=== PATIENT | female | born 1970 ===

== ENCOUNTER → 2020-02-24 | Outpatient (CLI) | payer MEDICAID ==
--- NOTE | 2020-02-24 12:57 | US ---
EXAMINATION TYPE: US kidneys/renal and bladder DATE OF EXAM: 02/24/2020 COMPARISON: NONE CLINICAL HISTORY: Q61.2 Polycystic kidney disease (family history of). EXAM MEASUREMENTS: Right Kidney: 12.0 x 3.6 x 4.7cm Left Kidney: 11.4 x 4.7 x 4.3cm Right Kidney: no hydronephrosis or masses seen Left Kidney: no hydronephrosis or masses seen Bladder: wnl There is no evidence for hydronephrosis at this point in time. No nephrolithiasis is seen. No shimon s are identified. The urinary bladder is anechoic. Bilateral ureteral jets are seen. IMPRESSION:
== END | disposition home or self-care (01) ==
LOC: RADUSWWP 12:05
PROVIDERS: ATTEND Internal Medicine Critical Care Medicine
DX: Q61.2 Polycystic kidney, adult type (principal)
CPT/HCPCS: 76770

== ENCOUNTER → 2020-04-23 | Outpatient (CLI) | payer MEDICAID ==
--- NOTE | 2020-04-23 17:31 | BD ---
EXAMINATION TYPE: Axial Bone Density DATE OF EXAM: 04/23/2020 COMPARISON: NONE CLINICAL HISTORY: Postmenopausal screening Height: 66.2 IN Weight: 119 LBS FRAX RISK QUESTIONS: Secondary Osteoporosis: 3. Menopause before 45: YES AGE 37 4. Malnutrition: YES Current Tobacco Use: YES RISK FACTORS HISTORY OF: Family History of Osteoporosis: YES MOTHER Active: YES Diet low in dairy products/other sources of calcium: YES Postmenopausal woman: AGE 37 Take estrogen and/or progesterone medications: CONTROL PILLS How long: AGE 47-PRESENT MEDICATIONS: Additional Medications: CONTROL, CRESTOR EXAM MEASUREMENTS: Bone mineral densitometry was performed using the [employer] System. Bone mineral density as measured about the Lumbar spine is: ----- L1-L4(G/cm2): 0.847 T Score Values are as follows: ----- L2: -3.5 ----- L3: -2.4 ----- L4: -2.5 ----- L1-L4: -2.8 Bone mineral density BASELINE Bone mineral density about the R hip (g/cm2): 0.712 Bone mineral density about the L hip (g/cm2): 0.664 T Score values are as follows: -----R Neck: -2.3 -----L Neck: -2.7 -----R Total: -2.4 -----L Total: -2.6 Bone mineral density BASELINE IMPRESSION: Osteoporosis (T Score less than -2.5). There is increased fracture risk and therapy is usually indicated based on age. Re-Screen 1-2 years. NOTE: T-SCORE=SD OF THE YOUNG ADULT MEAN.
== END | disposition home or self-care (01) ==
LOC: RADBDWWP 07:21
PROVIDERS: ATTEND Obstetrics & Gynecology
DX: Z13.820 Encounter for screening for osteoporosis (principal); M81.0 Age-related osteoporosis without current pathological fracture
CPT/HCPCS: 77080

== ENCOUNTER → 2020-07-11 | Outpatient (CLI) | payer MEDICAID ==
--- NOTE | 2020-07-13 12:07 | MM ---
Reason for exam: screening (asymptomatic). Last mammogram was performed 3 years and 5 months ago. History: Patient is postmenopausal. Retro-pectoral silicone gel implants, 2010. Taking hormonal contraceptives for 7 years beginning at age 17. Taking estrogen for 3 years. Physical Findings: A clinical breast exam by your physician is recommended on an annual basis and results should be correlated with mammographic findings. MG 3D Screen Mammo Imp/Cad Bilateral CC, MLO, and ID view(s) were taken. Prior study comparison: January 30, 2017, mammogram. The breast tissue is extremely dense which could obscure a lesion on mammography. Bilateral breast prothesis. No significant changes when compared with prior studies. ASSESSMENT: Benign, BI-RAD 2 RECOMMENDATION: Routine screening mammogram of both breasts in 1 year.
== END | disposition home or self-care (01) ==
LOC: RADMAMWWP 07:05
PROVIDERS: ATTEND Obstetrics & Gynecology
DX: Z12.31 Encounter for screening mammogram for malignant neoplasm of breast (principal)
CPT/HCPCS: 77063; 77067